=== PATIENT | male | born 1985 | race Native Hawaiian/Other Pacific Islander ===

== ENCOUNTER 2018-09-05 22:19 | Emergency (ER) | payer OTHER ==
[2018-09-05 22:34] VITALS: BP 155/98; PULSE 81; RESP 16; TEMP 98.3; O2SAT 99
--- NOTE | 2018-09-05 23:16 | ED PDOC ---
HPI: General Adult Time Seen by Provider: 09/05/18 22:40 Chief Complaint (Nursing): Medical Clearance Chief Complaint (Provider): HIV exposure History Per: Patient History/Exam Limitations: no limitations Onset/Duration Of Symptoms: Hrs Have you had recent travel within the past 21 days to any of the following countries: [place], [place], [place] or [place]?: No Additional Complaint(s): 32 y/o M with HTN who presents after possible HIV exposure today. Patient states that he was riding the [place] in [facility] today and was holding the bar above his head when he felt something scratch him. The person next to him was wearing a spiky bracelet and had his own blood drops around his wrist. The patient saw drops of blood on his arm around the scratch as well as blood coming from his own wound. As the other person was walking off of the train, he noted that he had a backpack that said HIV+. Patient wants HIV prophylaxis as he is very nervous that he was exposed. He currently has no physical complaints. Past Medical History Reviewed: Historical Data, Nursing Documentation, Vital Signs Vital Signs: Last Vital Signs Temp 98.3 F 09/05/18 22:32 Pulse 81 09/05/18 22:32 Resp 16 09/05/18 22:32 BP 155/98 H 09/05/18 22:30 Pulse Ox 99 09/05/18 22:32 - Medical History PMH: HTN - Family History Family History: States: Unknown Family Hx - Social History Current smoker - smoking cessation education provided: No Ex-Smoker (has not smoked in the last 12 months): No Alcohol: Occasional Drugs: Denies - Home Medications Home Medications: Ambulatory Orders Medication Instructions Recorded Emtricitabine/Tenofovir (Tdf) 1 each PO DAILY 14 Days tablet 09/05/18 [Truvada 200 mg-300 mg Tablet] Raltegravir Potassium [Isentress] 400 mg PO BID 14 Days tab 09/05/18 - Allergies Allergies/Adverse Reactions: Allergies Allergy/AdvReac Type Severity Reaction Status Date / Time No Known Allergies Allergy Verified 09/05/18 22:29 Review of Systems ROS Statement: Except As Marked, All Systems Reviewed And Found Negative Constitutional: Negative for: Fever, Chills Cardiovascular: Negative for: Chest Pain Physical Exam - Reviewed Nursing Documentation Reviewed: Yes Vital Signs Reviewed: Yes - Physical Exam Appears: Positive for: Well Head Exam: Positive for: ATRAUMATIC Skin: Positive for: Normal Color Eye Exam: Positive for: Normal appearance Cardiovascular/Chest: Positive for: Regular Rate, Rhythm Respiratory: Positive for: Normal Breath Sounds Gastrointestinal/Abdominal: Positive for: Normal Exam Extremity: Positive for: Normal ROM Lymphatic: Positive for: Normal Exam Neurologic/Psych: Positive for: Alert, Oriented - Laboratory Results Result Diagrams: 09/05/18 23:15 09/05/18 23:15 - ECG O2 Sat by Pulse Oximetry: 99 Medical Decision Making Medical Decision Making: Counseling re: HIV exposure and not truly knowing other democrat's HIV status discussed. Risks/side effects of PEP explained to patient who states that he needs peace of mind and wants to take the medication. CBC, CMP, Rapid HIV Disposition - Clinical Impression Clinical Impression: HIV exposure - Patient ED Disposition Is Patient to be Admitted: No Counseled Patient/Family Regarding: Studies Performed, Need For Followup, Rx Given - Disposition Disposition: Routine/Home Disposition Time: 00:11 Condition: STABLE Additional Instructions: You must f/u with your primary care provider or return to ER within the next 2 weeks for repeat blood work to receive the remainder of the medication regimen. Prescriptions: Emtricitabine/Tenofovir (Tdf) [Truvada 200 mg-300 mg Tablet] 1 each PO DAILY 14 Days tablet Raltegravir Potassium [Isentress] 400 mg PO BID 14 Days tab Instructions: General (DC) Forms: [employer] (Bengali) Print Language: ANDORRAN
[2018-09-05 23:36] LABS: BASO % 0.5 % (0.0-2.0); EOS # 0.1 K/uL (0.0-0.7); EOS % 1.8 % (0.0-4.0); HEMOGLOBIN 14.6 g/dL (12.0-18.0); LYMPH % 28.6 % (20.0-40.0); MEAN CELL VOLUME 82.9 fl (80.0-94.0); MEAN CORPUSCULAR HEMOGLOBIN 27.5 pg (27.0-31.0); MEAN CORPUSCULAR HGB CONC 33.1 g/dL (33.0-37.0); MEAN PLATELET VOLUME 9.3 fl (7.2-11.7); MONO # 0.5 K/uL (0.0-0.8); MONO % 7.9 % (0.0-10.0); NEUT # 4.3 K/uL (1.8-7.0); NEUT % 61.2 % (50.0-75.0); NRBC % 0.1 % (0.0-0.0); RBC 5.3 Mil/uL (4.40-5.90); RED CELL DISTRIBUTION WIDTH 14.3 % (11.5-14.5)
[2018-09-05 23:46] LABS: ALB/GLOB RATIO 1.3 (1.0-2.1); ALBUMIN 4.9 g/dL (3.5-5.0); ALT/SGPT 74 U/L (21-72); AST/SGOT 47 U/L (17-59); BLOOD UREA NITROGEN 14 mg/dl (9-20); CALCIUM 9.9 mg/dL (8.4-10.2); GFR NON-AFRICAN AMERICAN > 60
== END 2018-09-06 00:35 | disposition home or self-care (01) ==
LOC: H.ER 22:19
DX: Z20.6 Contact with and (suspected) exposure to human immunodeficiency virus [HIV] (principal)